=== PATIENT | female | born 1990 | race Two or more races ===

== ENCOUNTER → 2016-11-12 | Outpatient (REF) | payer OTHER | LOC: M LAB REF 13:10 | PROVIDERS: ATTEND Obstetrics & Gynecology | DX: Z36 Encounter for antenatal screening of mother (principal); Z3A.00 Weeks of gestation of pregnancy not specified ==

== ENCOUNTER → 2016-12-11 | Outpatient (REF) | payer OTHER | LOC: M LAB REF 12:59 | PROVIDERS: ATTEND Specialist | DX: Z34.82 Encounter for supervision of other normal pregnancy, second trimester (principal) ==

== ENCOUNTER → 2016-12-17 | Outpatient (CLI) | payer OTHER ==
--- NOTE | 2016-12-17 12:02 | REP ---
OB ULTRASOUND: Real-time sonographic evaluation of the gravid uterus is performed. There is a single living intrauterine gestation with an estimated gestational age of 20 weeks 5 days, EDC 05/01/2017. Today's measurements indicate appropriate growth. Biometry and Growth: BPD 48 mm = 20 weeks 3 days, 43rd percentile HC 184 mm = 20 weeks 5 days, 51st percentile AC 155 mm = 20 weeks 5 days, 50th percentile FL 34 mm = 20 weeks 6 days, 52nd percentile HC/AC ratio 1 1.8 within normal range. Estimated weight 373 grams, 47th percentile. SEEN/GROSSLY UNREMARKABLE Lateral ventricles Yes Posterior fossa Yes Upper lip No Four-chamber heart Yes Echogenic focus in the left ventricle likely related to cordae tendinea. LVOT No RVOT No Stomach Yes Cord insertion Yes Three vessel cord No Kidneys Yes Bladder Yes Spine Yes Cervical length: Cervix is closed and measures 4.7 cm in length. heart rate: 132 beats per minute. position: Vertex Placenta: Anterior and grade 0 with no previa or abruption. Amniotic fluid: Within normal limits. Signed by Chong Parnell MD 12/17/2016 12:30 P
== END ==
LOC: M RAD 10:25
PROVIDERS: ATTEND Specialist
DX: Z36 Encounter for antenatal screening of mother (principal); Z3A.20 20 weeks gestation of pregnancy

== ENCOUNTER → 2017-01-20 | Outpatient (CLI) | payer OTHER ==
--- NOTE | 2017-01-21 05:43 | REP ---
Clinical: Anatomical evaluation. Comparison: 12/17/2016 . Findings: Examination demonstrates a single live intrauterine in variable presentation. motion is identified by technologist. Placenta is noted anteriorly and grade zero without evidence for placenta previa or abruption. Amniotic fluid volume is normal. Cervix measures 4.2 cm in length and appears closed. No evidence for nuchal cord. Gestational age by LMP 25 weeks 4 days with ANJMU 05/01/2017 . Gestational age by current measurements 25 weeks 3 days with ANJUM 05/02/2017 . FHR equals 141 beats per minute. Estimated weight 820 grams ( 41st percentile). Anatomical assessment demonstrates normal structures including cranium, choroid plexus, cavum, cerebellum/posterior fossa, facial features, lungs, four-chamber heart/ventricular outflow tracts, diaphragm, stomach, cord insertion/three-vessel cord, kidneys/bladder, and lower extremities. Impression: Single live intrauterine in variable presentation demonstrating appropriate interval growth. In conjunction with prior examination anatomical assessment is complete and normal. Signed by Lobito Andrews MD 01/21/2017 05:34 A
== END ==
LOC: M SMT 12:55
PROVIDERS: ATTEND Advanced Practice Midwife
DX: Z34.82 Encounter for supervision of other normal pregnancy, second trimester (principal)

== ENCOUNTER → 2017-02-04 | Outpatient (CLI) | payer OTHER ==
[2017-02-04 13:45] LABS: MEAN CORPUSCULAR HGB CONC 33.5 g/dl (32.0-36.5); MEAN CORPUSCULAR VOLUME 95.6 fl (80.0-96.0); RED CELL DISTRIBUTION WIDTH 12.6 % (11.5-14.5)
== END ==
LOC: M SMT 09:06
PROVIDERS: ATTEND Advanced Practice Midwife
DX: Z36 Encounter for antenatal screening of mother (principal); Z3A.00 Weeks of gestation of pregnancy not specified

== ENCOUNTER → 2017-04-02 | Outpatient (REF) | payer OTHER ==
[~2017-04-02] MED LIST: IBUP-1114 PO; OXYC1TAB23 PO; PRENTAB9 PO; RANI15TA PO; TUMS500C PO
== END ==
LOC: M LAB REF 17:23
PROVIDERS: ATTEND Advanced Practice Midwife
DX: Z36 Encounter for antenatal screening of mother (principal); Z3A.00 Weeks of gestation of pregnancy not specified

== ENCOUNTER → 2017-04-06 | Outpatient (CLI) | payer OTHER ==
[2017-04-06 19:31] LABS: BASO % 0.4 % (0.0-1.0); EOS # 0.1 K/mm3 (0.0-0.50); EOS % 1.8 % (0.0-3.0); LARGE UNSTAINED CELL # 0.1 K/mm3 (0.0-0.4); LARGE UNSTAINED CELL % 1.2 % (0.0-4.0); LYMPH # 1.5 K/mm3 (1.5-6.5); LYMPH % 20.3 % (24.0-44.0); MEAN CORPUSCULAR HEMOGLOBIN 30.9 pg (27.0-33.0); MEAN CORPUSCULAR HGB CONC 32.6 g/dl (32.0-36.5); MEAN CORPUSCULAR VOLUME 94.9 fl (80.0-96.0); MONO # 0.5 K/mm3 (0.0-0.8); MONO % 6.9 % (0.0-5.0); NEUTROPHILS # 4.7 K/mm3 (1.8-7.7); NEUTROPHILS % 69.4 % (36.0-66.0); PLATELET COUNT, AUTOMATED 127 k/mm3 (150-450); RED CELL DISTRIBUTION WIDTH 12.8 % (11.5-14.5); WHITE BLOOD COUNT 6.7 K/mm3 (4.0-10.0)
== END ==
LOC: M SMT 12:56
PROVIDERS: ATTEND Advanced Practice Midwife
DX: D69.6 Thrombocytopenia, unspecified (principal)

== ENCOUNTER 2017-04-29 02:16 | Inpatient (IN) | payer OTHER ==
[~2017-04-29] VITALS: Ht 157.5 cm; Wt 93.0 kg
[2017-04-29] VITALS (45 sets, daily range): BP systolic 96–198; BP diastolic 48–96
[2017-04-29] MEDS ORDERED: LACTATED RINGER'S 1000 ML IV STA (04:42)
[2017-04-29] MEDS ORDERED: OXYTOCIN DRIP 30 UNITS in APPROPRIATE DILUENT 1 EA IV SCH (04:45)
[2017-04-29 05:33] LABS: MEAN CORPUSCULAR HEMOGLOBIN 31.9 pg (27.0-33.0); MEAN CORPUSCULAR HGB CONC 34.3 g/dl (32.0-36.5); RED CELL DISTRIBUTION WIDTH 12.7 % (11.5-14.5); WHITE BLOOD COUNT 7.2 K/mm3 (4.0-10.0)
[2017-04-29] MEDS ORDERED: TUMS500C PO (07:12)
[2017-04-29] MEDS ORDERED: RANI15TA PO (07:12)
[2017-04-29] MEDS ORDERED: PRENTAB9 PO (07:12)
[2017-04-29] MEDS ORDERED: FENTANYL 2MCG/ML ROPIVACAINE 0.2% IN 0.9% NACL 200ML IVBAG As Ordered ONE (07:32)
[2017-04-29] MEDS ORDERED: ONDANSETRON 4MG/2ML VIAL (J2405) IV PRN ×3 (08:00→22:00)
[2017-04-29] MEDS ORDERED: EPIDURAL/PCA KEYS XX PRN (08:00)
[2017-04-29] MEDS ORDERED: FENTANYL/ROPIVACAINE/NACL BAG 200 ML EPIDURAL SCH (08:00)
[2017-04-29] MEDS ORDERED: REFRIGERATOR IV KEYS XX PRN (08:00)
[2017-04-29] MEDS ORDERED: EPIDURAL COMMENT XX SCH (08:00)
[2017-04-29] MEDS ORDERED: ePHEDrine SULFATE 25 MG/5 ML(5MG/ML) SYRINGE IV PRN (08:00)
[2017-04-29] MEDS ORDERED: LACTATED RINGER'S 1000 ML IV PRN (08:00)
[2017-04-29] MEDS ORDERED: NALOXONE INJ 0.4 MG/1 ML VIAL (J2310) IV PRN ×3 (08:00→21:20)
[2017-04-29] MEDS ORDERED: diphenhydrAMINE INJ 50MG/ML VIAL (J1200) IV PRN (08:00)
[2017-04-29] MEDS: LR 1,000 ML IV SCH ×4 (08:18→21:49)
[2017-04-29] MEDS ORDERED: OXYTOCIN 30 UNITS IN 0.9% NaCl 500ML IV BAG (J2590) As Ordered ONE (09:08)
[2017-04-29] MEDS: BICITRA 30ML SOLN UDC PO SCH (20:12)
[2017-04-29] MEDS ORDERED: KETOROLAC 60 MG/2 ML VIAL (J1885) As Ordered ONE (20:49)
[2017-04-29] MEDS ORDERED: MORPHINE PRES-FREE INJ 10 MG/10 ML VIAL (J2274) As Ordered ONE ×2 (20:49→21:16)
[2017-04-29] MEDS ORDERED: ONDANSETRON 4MG/2ML VIAL (J2405) As Ordered ONE (20:49)
[2017-04-29] MEDS ORDERED: fentaNYL 100 MCG/2 ML INJECTION (J3010) As Ordered ONE (21:02)
[2017-04-29] MEDS ORDERED: PROPOFOL 200 MG/20 ML VIAL As Ordered ONE ×2 (21:05→21:31)
[2017-04-29] MEDS ORDERED: LIDOCAINE PRES-FREE 2% 10ML AMP As Ordered ONE ×2 (21:11→21:12)
[2017-04-29] MEDS ORDERED: METOCLOPRAMIDE INJ 10MG/2ML VIAL (J2765) IV PRN (21:20)
[2017-04-29] MEDS ORDERED: NALBUPHINE HCL 10 MG/ML AMP (J2300) IV PRN (21:20)
[2017-04-29] MEDS ORDERED: MEASLES,MUMPS,RUBELLA VACCINE INJ (MMR-II) (90707) SC SCH (22:00)
[2017-04-29] MEDS ORDERED: MOM 30ML SUSPENSION UDC PO PRN (22:00)
[2017-04-29] MEDS ORDERED: RHOGAM 300 MCG (1500 IU) INJ (J2790) IM SCH (22:00)
[2017-04-29] MEDS ORDERED: DOCUSATE SODIUM 100 MG CAP PO PRN (22:00)
[2017-04-29] MEDS ORDERED: METHYLERGONOVINE MALEATE 0.2 MG TAB PO PRN (22:00)
[2017-04-29] MEDS ORDERED: ANUSOL HC CREAM 30GM TOP PRN (22:00)
[2017-04-29] MEDS ORDERED: fentaNYL 100 MCG/2 ML INJECTION (J3010) IV PRN (22:30)
[2017-04-30] VITALS (11 sets, daily range): BP systolic 100–132; BP diastolic 51–75
[2017-04-30] MEDS: PERCOCET 5MG/325MG TAB PO PRN ×4 (00:05→23:59)
[2017-04-30] MEDS: KETOROLAC 30 MG/ML VIAL (J1885) IV SCH ×4 (03:21→21:09)
[2017-04-30] MEDS: BICITRA 30ML SOLN UDC PO SCH (03:51)
[2017-04-30] MEDS: LR 1,000 ML IV SCH ×2 (04:42→05:49)
[2017-04-30] MEDS: PRENATAL VITAMINS CHEWABLE TABLET PO SCH (07:59)
--- NOTE | 2017-04-30 08:10 | HPE ---
DATE OF ADMISSION: 04/29/2017 26-year-old 2, para 1-0-0-1, estimated date of delivery 05/01/2017, presents at 39 weeks 5 days with reports of spontaneous rupture of membranes, clear fluid at 0000 with onset uterine contractions thereafter. Denies heavy bleeding. Fetus is active. Last normal menstrual period 07/15/2016 for initial estimated due date (ANJUM) 04/21/2017, sonogram at 7 weeks changed her date to 05/01/2017. Sought first trimester care. Anatomy scan within normal limits. Gestational thrombocytopenia stable. OBSTETRICAL HISTORY: August 2010, primary at 38 weeks for breech presentation, viable male 5 pounds 10 ounces. ALLERGIES: No known drug allergies. MEDICAL/SURGICAL HISTORY: and wrist surgery. FAMILY HISTORY: Noncontributory. SOCIAL HISTORY: . Father of the baby, family supportive. Denies tobacco, alcohol, drugs or abuse. OBJECTIVE: Prepregnancy weight is unknown, weight at entry to care 191, total weight gain 21 pounds. A positive, antibody negative, rubella immune, VDRL, hepatitis B, hepatitis C, HIV, gonorrhea, chlamydia all negative. Declined a quad screen. 1-hour glucose 109, platelets in August 148, in January 139 and in March 127. Group B Streptococcus is negative. Vital signs are stable. She is breathing with contractions. Abdomen is soft, gravid, longitudinal lie. Contractions every 2-5 minutes for 45-60 seconds and mild, heart 135, moderate variability with accelerations. Sterile speculum exam: Small pooling of clear mucoid fluid, positive fern, positive Nitrazine. Sterile vaginal exam: 2 cm, 80% effaced, -2 and cephalic. ASSESSMENT: Multiparous at term, previous , category one tracing, premature rupture of membranes (PROM). PLAN: Admit. Patient counseled during the regarding mode of delivery and desires trial of labor after section (TOLAC). Dr. Villar is informed of the patient's status. Pitocin augmentation. The patient plans epidural. Anticipate successful vaginal after section ().
[2017-04-30 08:28] LABS: MEAN CORPUSCULAR HEMOGLOBIN 31.8 pg (27.0-33.0); MEAN CORPUSCULAR HGB CONC 34.1 g/dl (32.0-36.5); MEAN CORPUSCULAR VOLUME 93.3 fl (80.0-96.0); RED CELL DISTRIBUTION WIDTH 13.2 % (11.5-14.5); WHITE BLOOD COUNT 11.4 K/mm3 (4.0-10.0)
[2017-05-01] MEDS ORDERED: IBUPROFEN 800 MG TAB PO SCH (05:00)
[2017-05-01 06:08] VITALS: BP 117/59
[2017-05-01] MEDS: PRENATAL VITAMINS CHEWABLE TABLET PO SCH (08:15)
--- NOTE | 2017-05-01 09:50 | RO ---
DATE OF PROCEDURE: 04/29/2017 PREPROCEDURE DIAGNOSIS: 39 weeks , vaginal after (), arrest of descent, gestational hypertension. POSTPROCEDURE DIAGNOSIS: 39 weeks , vaginal after (), arrest of descent, gestational hypertension. PROCEDURE: Repeat low transverse section. SURGEON: Dr. Mir Jeffries RETAIL PRESENTATION SPECIALIST: Dr. Eduardo Shaver ANESTHESIA: Epidural. ESTIMATED BLOOD LOSS: 600 mL. FINDINGS: 7 pound and 11 ounce male , 3492 grams, Apgars 9 and 9, in the right occiput posterior position. Adhesions of the uterus to the anterior abdominal wall. Adhesions of omentum to the anterior abdominal wall and uterine fundus. OPERATIVE SUMMARY: The patient taken to the operating room where epidural anesthesia was adequate. She was prepped and draped in sterile fashion in the supine position. A Naranjo catheter was in place. A Pfannenstiel skin incision was made with the scalpel and carried through to the fascia. The fascia was nicked and extended and the fascia was dissected off the rectus muscles. The peritoneal cavity was entered. A bladder flap was created. A curvilinear incision was made in the lower uterine segment until clear fluid was noted. This was extended manually. The infant was delivered from the vertex position without difficulty using standard maneuvers. The cord was doubly clamped and cut. The infant was handed off to the awaiting nurses. The placenta was expressed. The adhesions of the uterus to the anterior wall were taken down sharply. The adhesions of the omentum to the uterine fundus and anterior abdominal wall were taken down sharply. The uterus was exteriorized and cleared of clots and debris. The uterine incision was closed with #0 Vicryl in a running locked fashion. A second imbricating layer of #0 Vicryl was placed. The uterus was placed back in the abdominal cavity. The peritoneum was closed with #2-0 Vicryl in a running fashion. The fascia was closed with #0 Vicryl. Deep layer was irrigated and closed with #2-0 chromic. The skin was closed with #4-0 Monocryl. Sponge, needle and instrument counts were correct.
[2017-05-01] MEDS ORDERED: IBUP-1114 PO (11:53)
[2017-05-01] MEDS ORDERED: OXYC1TAB23 PO ×2 (11:53→17:43)
[2017-05-01] MEDS: PERCOCET 5MG/325MG TAB PO PRN (12:05)
--- NOTE | 2017-05-02 21:43 | DSES ---
DATE OF ADMISSION: 04/29/2017 DATE OF DISCHARGE: 05/01/2017 FINAL DIAGNOSES: 1. Intrauterine at 39 and 5 weeks' gestation with a history of prior section was admitted for trial of labor after . 2. Arrest of descent. 3. Repeat section. PROCEDURE PERFORMED DURING THIS ADMISSION: Repeat section. CONDITION ON DISCHARGE: Stable. DISCHARGE INSTRUCTIONS: She is instructed to call if there is any severe bleeding, pain, or temperature greater than 101. Ibuprofen as needed for pain. Percocet for severe pain. BRIEF HISTORY: Natalia is a 26-year-old female, 2, para 1-0-0-1 with a history of prior section who was admitted at 39-5/7 weeks gestation with spontaneous rupture of membranes. She desired trial of labor after section. She progressed to fully dilated. Had an arrest of descent and taken to the operating room for repeat section. She underwent the above-noted procedure. Was then transferred to maternity for postoperative care. Postoperatively she did well. Remained afebrile all throughout her hospital stay. On postoperative day #2 was found to be within normal limits. At this point, a decision was made to discharge the patient. Postoperative hemoglobin and hematocrit were 8.8/25.8 and platelet count of 102. The patient had gestational thrombocytopenia throughout the .
== END 2017-05-01 12:32 | disposition home or self-care (01) | DRG 766 ==
LOC: M LDO 02:16 → M ED INP 04:45 → M LDI 05:19 → M OBS 23:06
PROVIDERS: ADMIT Advanced Practice Midwife; ATTEND Specialist
PROC: 10D00Z1 Extraction of Products of Conception, Low, Open Approach (ICD-10-PCS; principal; 2017-04-29 20:54)
DX: O42.02 Full-term premature rupture of membranes, onset of labor within 24 hours of rupture (principal); O66.41 Failed attempted vaginal birth after previous cesarean delivery; Z3A.39 39 weeks gestation of pregnancy; O34.211 Maternal care for low transverse scar from previous cesarean delivery; O32.4XX0 Maternal care for high head at term, not applicable or unspecified; O66.8 Other specified obstructed labor; O13.4 Gestational [pregnancy-induced] hypertension without significant proteinuria, complicating childbirth; Z37.0 Single live birth